=== PATIENT | female | born 1945 | race American Indian/Alaskan Native ===

== ENCOUNTER 2018-09-23 18:21 | Outpatient (CLI) | payer MEDICARE, MEDICAID | END 2018-09-23 18:22 | disposition home or self-care (01) | LOC: C.SLEEP 18:22 | DX: G47.33 Obstructive sleep apnea (adult) (pediatric) (principal) ==

== ENCOUNTER 2018-11-06 18:24 | Outpatient (CLI) | payer MEDICARE, MEDICAID | END 2018-11-06 18:25 | disposition home or self-care (01) | LOC: C.SLEEP 18:25 | DX: G47.33 Obstructive sleep apnea (adult) (pediatric) (principal) ==